=== PATIENT | male | born 2000 | race Caucasian/White ===

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

== ENCOUNTER 2021-03-17 17:27 | Emergency (ER) | payer OTHER ==
[~2021-03-17] VITALS: Ht 177.8 cm; Wt 113.4 kg
[2021-03-17] MEDS ORDERED: PROVENTIL HFA6.7 GM INH (19:01)
[2021-03-17] MEDS ORDERED: AMOXICILLIN500 MG PO (19:01)
[2021-03-17] MEDS ORDERED: NAPROSYN500 MG PO (19:02)
== END 2021-03-17 19:13 | disposition home or self-care (01) ==
LOC: ED 17:27
DX: U07.1 COVID-19 (principal); J45.909 Unspecified asthma, uncomplicated; H66.42 Suppurative otitis media, unspecified, left ear
CPT/HCPCS: 99284; C9803; U0003

== ENCOUNTER 2021-05-03 10:13 | Emergency (ER) | payer OTHER ==
[~2021-05-03] VITALS: Ht 177.8 cm; Wt 114.6 kg
[~2021-05-03 10:13] MED LIST changes: +AMOXICILLIN500 MG PO; +NAPROSYN500 MG PO; +PROVENTIL HFA6.7 GM INH
[2021-05-03] MEDS ORDERED: CEPHALEXIN500 MG PO (11:04)
[2021-05-03] MEDS ORDERED: BACTRIM DS TAB1 EACH PO (11:04)
== END 2021-05-03 11:40 | disposition home or self-care (01) ==
LOC: ED 10:13
DX: L03.114 Cellulitis of left upper limb (principal); Z23 Encounter for immunization; J45.909 Unspecified asthma, uncomplicated
CPT/HCPCS: 90471; 90715; 99283-25

== ENCOUNTER 2021-05-05 01:38 | Emergency (ER) | payer OTHER ==
[~2021-05-05] VITALS: Ht 177.8 cm; Wt 115.4 kg
[~2021-05-05 01:38] MED LIST changes: +BACTRIM DS TAB1 EACH PO; +CEPHALEXIN500 MG PO
--- OUTSIDE RECORDS SUMMARY | 2021-05-05 01:46 | XMS ---
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 Zackary VISIT COUNT (12 MO.) 3 [facility] TOTAL 3 NOTE: Visits indicate total known visits. ED/C VISIT TRACKING (12 MO.) 05/05/2021 01:39 [facility] TYPE: Emergency COMPLAINT: - LEFT ARM INFECTION 05/03/2021 10:14 [facility] TYPE: Emergency COMPLAINT: - INSECT BITE ON ELBOW 03/17/2021 17:28 [facility] [place] TYPE: Emergency COMPLAINT: - COLD SYMPTOMS DIAGNOSES: - COVID-19 - Unspecified nonsuppurative otitis media, left ear - Acute pharyngitis, unspecified - Otitis media, unspecified, bilateral - Unspecified asthma, uncomplicated - Suppurative otitis media, unspecified, left ear - Otitis media, unspecified, right ear INPATIENT VISIT TRACKING (12 MO.) No inpatient visits to display in this time frame [email or web address]
== END 2021-05-05 02:20 | disposition home or self-care (01) ==
LOC: ED 01:38
DX: L03.114 Cellulitis of left upper limb (principal); J45.909 Unspecified asthma, uncomplicated; Z79.899 Other long term (current) drug therapy
CPT/HCPCS: 99283